=== PATIENT | female | born 1965 | race Caucasian/White ===

== ENCOUNTER 2016-11-16 05:38 | Inpatient (IN) | payer BC ==
[2016-11-16] MEDS ORDERED: Sodium Chloride 0.9% 1,000 ML IV ONE (05:56)
[2016-11-16] MEDS ORDERED: Ondansetron 4 MG/2 ML SDV IVPUSH ONE (05:56)
--- NOTE | 2016-11-16 06:53 | EDM.PDOC ---
ED HPI DIABETIC EMERGENCY - General Chief Complaint: Diabetic Complaint Stated Complaint: HIGH BLOOD SUGAR Time Seen by Provider: 11/16/16 06:43 - History of Present Illness INITIAL COMMENTS - FREE TEXT/NARRATIVE: HISTORY AND PHYSICAL: History of present illness: Patient 47-year-old female history diabetes assessments or nausea and vomiting over the last 4 or 5 days she denies abdominal pain denies fever chills. She denies history of known gastroparesis Review of systems: As per history of present illness and below otherwise all systems reviewed and negative. Past medical history: As per history of present illness and as reviewed below otherwise noncontributory. Surgical history: As per history of present illness and as reviewed below otherwise noncontributory. Social history: No reported history of drug or alcohol abuse. Family history: As per history of present illness and as reviewed below otherwise noncontributory. Physical exam: HEENT: Atraumatic, normocephalic, pupils reactive, negative for conjunctival pallor or scleral icterus, mucous membranes dry, throat clear, neck supple, nontender, trachea midline. Lungs: Clear to auscultation, breath sounds equal bilaterally, chest nontender. Heart: S1S2, regular, negative for clicks, rubs, or JVD. Abdomen: Soft, nondistended, nontender. Negative for masses or hepatosplenomegaly. Negative for costovertebral tenderness. Pelvis: Stable nontender. Genitourinary: Deferred. Rectal: Deferred. Extremities: Atraumatic, negative for cords or calf pain. Neurovascular unremarkable. Neuro: Awake, alert, oriented. Cranial nerves II through XII unremarkable. Cerebellum unremarkable. Motor and sensory unremarkable throughout. Exam nonfocal. Diagnostics: CBC CMP lipase EKG ABG Therapeutics: Normal saline 1 L bolus Zofran 4 mg IV Impression: #1 vomiting with dehydration #2 insulin-dependent diabetes Definitive disposition and diagnosis as appropriate - Related Data Allergies/ADRs: Allergies Allergy/AdvReac Type Severity Reaction Status Date / Time Sulfa (Sulfonamide Allergy Severe Airway Verified 11/16/16 05:59 Antibiotics) Tightness Penicillins Allergy Unknown Other Verified 11/16/16 05:59 codeine AdvReac Severe Vomiting Verified 11/16/16 05:59 Home Meds: Home Meds Hydrochlorothiazide 25 mg PO DAILY 11/16/16 [History] Insulin Glargine,Hum.Rec.Anlog [Aguilar Mattson] 18 unit SQ BEDTIME 11/16/16 [ History] SitaGLIPtin [Januvia] 40 mg PO DAILY 11/16/16 [History] metFORMIN HCl [Metformin HCl] 1,000 mg PO BID 11/16/16 [History] Past Medical History Cardiovascular History: Reports: Hypertension 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: Musculoskeletal History: Reports: Back pain, chronic, Other (see below) Other Musculoskeletal History: states back pain since hysterectomy Endocrine/Metabolic History: Reports: Diabetes, type II - Infectious Disease History Infectious Disease History: Reports: Chicken pox - Past Surgical History HEENT Surgical History: Reports: Tonsillectomy GI Surgical History: Reports: Appendectomy, Cholecystectomy Female Surgical History: Reports: section, Hysterectomy Social & Family History - Family History Cardiac: Reports: Heart failure Endocrine/Metabolic: Reports: Diabetes, type I, Diabetes, type II - Tobacco Use Smoking Status *Q: Never Smoker Second Hand Smoke Exposure: No - Caffeine Use Caffeine Use: Reports: Coffee Caffeine Use Comment: rare - Recreational Drug Use Recreational Drug Use: No ED ROS GENERAL - Review of Systems Review Of Systems: ROS reveals no pertinent complaints other than HPI. ED EXAM GENERAL NO PERIP PULSE - Physical Exam Exam: See Below (See dictation) Course - Vital Signs Last Recorded V/S: Last Vital Signs Temp 36.7 C 11/16/16 05:40 Pulse 86 11/16/16 06:17 Resp 17 11/16/16 06:17 BP 140/89 11/16/16 06:17 Pulse Ox 98 11/16/16 06:17 - Orders/Labs/Meds Orders: Active Orders 24 hr Category Date Time Status EKG Documentation Completion [RC] STAT Care 11/16/16 05:53 Active Chest 1V Frontal [CR] Stat Exams 11/16/16 05:55 Taken Labs: Laboratory Tests 11/16/16 11/16/16 11/16/16 Range/Units 05:50 05:50 05:50 WBC 6.33 (4.0-11.0) K/uL RBC 5.16 (4.30-5.90) M/uL Hgb 14.7 (12.0-16.0) g/dL Hct 41.8 (36.0-46.0) % MCV 81.0 (80.0-98.0) fL MCH 28.5 (27.0-32.0) pg MCHC 35.2 (31.0-37.0) g/dL RDW Std Deviation 38.3 (28.0-62.0) fl RDW Coeff of Lionel 13 (11.0-15.0) % Plt Count 164 (150-400) K/uL MPV 11.20 (7.40-12.00) fL Neut % (Auto) 57.0 (48.0-80.0) % Lymph % (Auto) 34.1 (16.0-40.0) % Yates % (Auto) 5.1 (0.0-15.0) % Eos % (Auto) 3.3 (0.0-7.0) % Baso % (Auto) 0.5 (0.0-1.5) % Neut # (Auto) 3.6 (1.4-5.7) K/uL Lymph # (Auto) 2.2 (0.6-2.4) K/uL Yates # (Auto) 0.3 (0.0-0.8) K/uL Eos # (Auto) 0.2 (0.0-0.7) K/uL Baso # (Auto) 0.0 (0.0-0.1) K/uL Nucleated RBC % 0.0 /100WBC Nucleated RBCs # 0 K/uL ABG pH (7.35-7.45) ABG pCO2 (35-45) mmHG ABG pO2 (75-100) mmHG ABG HCO3 (22-26) mEq/L ABG Total CO2 ABG Base Excess (-2.0-2.0) Sodium 134 L (136-146) mmol/L Potassium 3.8 (3.5-5.1) mmol/L Chloride 96 L (98-110) mmol/L Carbon Dioxide 27 (21-31) mmol/L BUN 14 (6.0-23.0) mg/dL Creatinine 1.3 (0.6-1.5) mg/dL Est Cr Clr Drug Dosing 45.55 mL/min Estimated GFR (MDRD) 43.0 ml/min Glucose 546 H* (60-110) mg/dL Calcium 9.7 (8.8-10.8) mg/dL Total Bilirubin 0.5 (0.1-1.5) mg/dL AST 49 H (5-40) IU/L ALT 62 H (8-54) IU/L Alkaline Phosphatase 132 (40-150) CK-MB (CK-2) 1.3 (0-6.6) ng/ml Troponin I < 0.10 (0.0-0.29) NG/ML Total Protein 7.9 (6.0-8.0) g/dL Albumin 4.4 (3.5-5.0) g/dL Globulin 3.5 (2.0-3.5) g/dL Albumin/Globulin Ratio 1.3 (1.3-2.8) Lipase 46 (7-80) U/L Urine Color Urine Appearance Urine pH (5.0-8.0) Ur Specific Beaumont (1.001-1.035) Urine Protein (NEGATIVE) mg/dL Urine Glucose (UA) (NEGATIVE) mg/dL Urine Ketones (NEGATIVE) mg/dL Urine Occult Blood (NEGATIVE) Urine Nitrite (NEGATIVE) Urine Bilirubin (NEGATIVE) Urine Urobilinogen (<2.0) EU/dL Ur Leukocyte Esterase (NEGATIVE) Urine RBC (0-2/HPF) Urine WBC (0-5/HPF) Ur Epithelial Cells (NONE-FEW) Urine Bacteria (NEGATIVE) 11/16/16 11/16/16 Range/Units 05:52 06:20 WBC (4.0-11.0) K/uL RBC (4.30-5.90) M/uL Hgb (12.0-16.0) g/dL Hct (36.0-46.0) % MCV (80.0-98.0) fL MCH (27.0-32.0) pg MCHC (31.0-37.0) g/dL RDW Std Deviation (28.0-62.0) fl RDW Coeff of Lionel (11.0-15.0) % Plt Count (150-400) K/uL MPV (7.40-12.00) fL Neut % (Auto) (48.0-80.0) % Lymph % (Auto) (16.0-40.0) % Yates % (Auto) (0.0-15.0) % Eos % (Auto) (0.0-7.0) % Baso % (Auto) (0.0-1.5) % Neut # (Auto) (1.4-5.7) K/uL Lymph # (Auto) (0.6-2.4) K/uL Yates # (Auto) (0.0-0.8) K/uL Eos # (Auto) (0.0-0.7) K/uL Baso # (Auto) (0.0-0.1) K/uL Nucleated RBC % /100WBC Nucleated RBCs # K/uL ABG pH 7.444 (7.35-7.45) ABG pCO2 40 (35-45) mmHG ABG pO2 80 (75-100) mmHG ABG HCO3 28 H (22-26) mEq/L ABG Total CO2 24.5 ABG Base Excess 3.2 H (-2.0-2.0) Sodium (136-146) mmol/L Potassium (3.5-5.1) mmol/L Chloride (98-110) mmol/L Carbon Dioxide (21-31) mmol/L BUN (6.0-23.0) mg/dL Creatinine (0.6-1.5) mg/dL Est Cr Clr Drug Dosing mL/min Estimated GFR (MDRD) ml/min Glucose (60-110) mg/dL Calcium (8.8-10.8) mg/dL Total Bilirubin (0.1-1.5) mg/dL AST (5-40) IU/L ALT (8-54) IU/L Alkaline Phosphatase (40-150) CK-MB (CK-2) (0-6.6) ng/ml Troponin I (0.0-0.29) NG/ML Total Protein (6.0-8.0) g/dL Albumin (3.5-5.0) g/dL Globulin (2.0-3.5) g/dL Albumin/Globulin Ratio (1.3-2.8) Lipase (7-80) U/L Urine Color YELLOW Urine Appearance CLEAR Urine pH 6.0 (5.0-8.0) Ur Specific Beaumont <= 1.005 (1.001-1.035) Urine Protein NEGATIVE (NEGATIVE) mg/dL Urine Glucose (UA) >=1000 (NEGATIVE) mg/dL Urine Ketones NEGATIVE (NEGATIVE) mg/dL Urine Occult Blood NEGATIVE (NEGATIVE) Urine Nitrite NEGATIVE (NEGATIVE) Urine Bilirubin NEGATIVE (NEGATIVE) Urine Urobilinogen 0.2 (<2.0) EU/dL Ur Leukocyte Esterase NEGATIVE (NEGATIVE) Urine RBC 0-1 (0-2/HPF) Urine WBC 1-3 (0-5/HPF) Ur Epithelial Cells RARE (NONE-FEW) Urine Bacteria RARE (NEGATIVE) Meds: Medications Discontinued Medications Generic Name Dose Route Start Last Admin Trade Name Freq PRN Reason Stop Dose Admin Sodium Chloride 1,000 mls @ 999 mls/hr 11/16/16 05:56 11/16/16 06:08 Normal Saline IV 11/16/16 06:56 999 mls/hr .BOLUS ONE Administration Ondansetron HCl 4 mg 11/16/16 05:56 11/16/16 06:08 Zofran IVPUSH 11/16/16 05:57 4 mg ONETIME ONE Administration Departure - Departure Time of Disposition: 07:02 Disposition: Refer to Observation Condition: good Clinical Impression: Uncontrolled diabetes mellitus, Vomiting, Dehydration Referrals: PCP,None [Primary Care Provider] - Forms: ED Department Discharge - My Orders Last 24 Hours: My Active Orders 11/16/16 05:53 EKG Documentation Completion [RC] STAT 11/16/16 05:55 Chest 1V Frontal [CR] Stat - Assessment/Plan Last 24 Hours: My Active Orders 11/16/16 05:53 EKG Documentation Completion [RC] STAT 11/16/16 05:55 Chest 1V Frontal [CR] Stat
[2016-11-16] MEDS: Ondansetron 4 MG/2 ML SDV IVPUSH PRN ×2 (09:19→13:21)
[2016-11-16] MEDS ORDERED: fentaNYL 100 MCG/2 ML SDV IVPUSH ONE ×2 (10:03→13:29)
--- NOTE | 2016-11-16 10:22 | PCM.HP ---
H&P History of Present Illness - General Admit Problem/Dx: Admission Diagnosis/Problem Admission Diagnosis/Problem Vomiting Source of Information: Patient History Limitations: Reports: No limitations - History of Present Illness Onset of Symptoms: Reports: gradual Duration of Symptoms: Reports: Week(s):, Getting worse Location: Reports: abdomen Quality: Reports: Dull, Pressure Severity: severe Improves with: Reports: None Worsens with: Reports: None Associated Symptoms: Reports: nausea/vomiting - Related Data Allergies/Adverse Reactions: Allergies Allergy/AdvReac Type Severity Reaction Status Date / Time Sulfa (Sulfonamide Allergy Severe Airway Verified 11/16/16 05:59 Antibiotics) Tightness Penicillins Allergy Unknown Other Verified 11/16/16 05:59 codeine AdvReac Severe Vomiting Verified 11/16/16 05:59 Home Medications: Home Meds Hydrochlorothiazide 25 mg PO DAILY 11/16/16 [History] Insulin Glargine,Hum.Rec.Anlog [Toujeo Solostar] 18 unit SQ BEDTIME 11/16/16 [ History] SitaGLIPtin [Januvia] 40 mg PO DAILY 11/16/16 [History] metFORMIN HCl [Metformin HCl] 1,000 mg PO BID 11/16/16 [History] Past Medical History HEENT History: Reports: Other (see below) (episodic vertigo) Cardiovascular History: Reports: Hypertension Gastrointestinal History: Reports: Other (see below) (ruptured appendix in childhood, chlecystectomy, c section, hysterectomy) 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 OB/BYN History: 3 live births several miscarriages Musculoskeletal History: Reports: Back pain, chronic, Other (see below) Other Musculoskeletal History: states back pain since hysterectomy Psychiatric History: Reports: Anxiety (recent onset) Endocrine/Metabolic History: Reports: Diabetes, type II - Infectious Disease History Infectious Disease History: Reports: Chicken pox - Past Surgical History HEENT Surgical History: Reports: Tonsillectomy GI Surgical History: Reports: Appendectomy, Cholecystectomy Female Surgical History: Reports: section, Hysterectomy Social & Family History - Family History Family Medical History: Noncontributory (parents lived to 80ies, several siblings well) Cardiac: Reports: Heart failure Endocrine/Metabolic: Reports: Diabetes, type I, Diabetes, type II - Tobacco Use Smoking Status *Q: Never Smoker Second Hand Smoke Exposure: No - Caffeine Use Caffeine Use: Reports: Coffee Caffeine Use Comment: rare - Alcohol Use Days Per Week of Alcohol Use Comment: rare Alcohol Use in Last Twelve Months: Yes - Recreational Drug Use Recreational Drug Use: No - Living Situation & Occupation 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) H&P Review of Systems - Review of Systems: Review Of Systems: See Below General: Reports: malaise, weakness, decreased appetite HEENT: Reports: vertigo Pulmonary: Reports: No Symptoms Cardiovascular: Reports: no symptoms Gastrointestinal: Reports: Abdominal pain, Distension, Vomiting Genitourinary: Reports: no symptoms Musculoskeletal: Reports: leg pain (neuropathy) Skin: Reports: no symptoms Psychiatric: Reports: anxiety Neurological: Reports: Tingling Hematologic/Lymphatic: Reports: no symptoms Immunologic: Reports: no symptoms Exam - Exam Exam: See Below - Vital Signs Vital Signs: Last Vital Signs Temp 36.9 C 11/16/16 07:19 Pulse 82 11/16/16 07:19 Resp 17 11/16/16 07:19 BP 116/68 11/16/16 07:19 Pulse Ox 95 11/16/16 07:19 Weight: 98.883 kg - Exam General: alert, moderate distress HEENT: Conjunctiva clear Neck: trachea midline Lungs: Clear to auscultation Cardiovascular: regular rate Abdomen: tenderness (marked. seems generalized without rebound), hypoactive bowel sounds, other (tinkly quality) (Female) Exam: Deferred Rectal (Female) Exam: Deferred Back Exam: normal inspection Extremities: normal inspection, normal pulses Skin: warm, intact Neurological: cranial nerves intact Neuro Extensive - Mental Status: alert, oriented x3, memory intact Neuro Extensive - Motor, Sensory, Reflexes: CN II-XII intact Psychiatric: anxious - Patient Data Result Diagrams: 11/16/16 05:50 11/16/16 05:50 *Q Meaningful Use (ADM) - VTE *Q VTE Criteria *Q: - Stroke *Q Stroke Criteria *Q: - AMI *Q AMI Criteria *Q: Problem List Initiated/Reviewed/Updated: Yes Orders Last 24hrs: Active Orders 24 hr Category Date Time Status Patient Status [ADT] Routine ADT 11/16/16 10:04 Active Oxygen Therapy [RC] PRN Care 11/16/16 10:04 Active VTE/DVT Education [RC] PER UNIT ROUTINE Care 11/16/16 10:04 Active Vital Signs [RC] Q4H Care 11/16/16 10:04 Active Nothing per Oral Now Diet [DIET] Diet 11/16/16 Breakfast Active Abdomen Pelvis w wo Cont [CT] Routine Exams 11/16/16 09:58 Ordered Ondansetron [Zofran] Med 11/16/16 09:14 Active 4 mg IVPUSH Q4H PRN Resuscitation Status Routine Resus Stat 11/16/16 10:04 Ordered Medication Orders Ondansetron HCl (Zofran) 4 mg IVPUSH Q4H PRN PRN Reason: Nausea Last Admin: 11/16/16 09:19 Dose: 4 mg sign and symptoms consistent with SBO in this pt with history of multiple abdominal surgery DM with neuropathy hypertension vertigo anxiety will get CT, likely surgical consult
[2016-11-16] MEDS ORDERED: Insulin Aspart 100 Units/ML 3 ML Pen SUBCUT STA (10:29)
[2016-11-16] MEDS ORDERED: Dextrose 5%-0.45% NaCl 1,000 ML IV SCH (10:45)
[2016-11-16] MEDS ORDERED: Promethazine 25 MG/ML SDV IM PRN (11:46)
[2016-11-16] MEDS: Pregabalin 25 MG Cap PO SCH ×2 (12:09→21:13)
[2016-11-16] MEDS ORDERED: Insulin Aspart 100 Units/ML 3 ML Pen SUBCUT SCH ×3 (16:00→22:00)
[2016-11-16] MEDS: oxyCODONE 5 MG Tab PO PRN ×2 (16:54→21:13)
[2016-11-16] MEDS: Sodium Chloride 0.9% 1,000 ML IV SCH (18:26)
[2016-11-16] MEDS: Insulin Aspart 100 Units/ML 3 ML Pen SUBCUT SCH (21:56)
[2016-11-17] MEDS: oxyCODONE 5 MG Tab PO PRN (01:34)
[2016-11-17] MEDS ORDERED: Acetaminophen 325 MG Tab PO PRN (01:38)
[2016-11-17] MEDS: Ondansetron 4 MG/2 ML SDV IVPUSH PRN ×3 (01:57→21:38)
[2016-11-17] MEDS: Insulin Aspart 100 Units/ML 3 ML Pen SUBCUT SCH ×3 (04:02→17:25)
--- NOTE | 2016-11-17 09:33 | PCM.PN ---
- General Info Date of Service: 11/17/16 Admission Dx/Problem (Free Text): Admission Diagnosis/Problem Admission Diagnosis/Problem Vomiting Subjective Update: Doing better today, abdominal pain improving. Tolerating diet. Has headache now , wants Lyrica discontinued. No chest pain SOB or neck pain. Functional Status: Reports: pain controlled, tolerating diet, ambulating, urinating - Review of Systems General: Denies: Fever HEENT: Reports: headaches (frontal, feels like the typical heahache she gets when taking Lyrica, requests to stop Lyrica.). Denies: sinus congestion, sore throat Pulmonary: Reports: no symptoms. Denies: shortness of breath, cough, sputum Cardiovascular: Reports: No Symptoms. Denies: Chest Pain, Palpitations Gastrointestinal: Reports: Abdominal pain (tenderness noted diffusely, explains as crampy sensation now. ), Flatus, Nausea. Denies: Vomiting Genitourinary: Reports: no symptoms. Denies: dysuria, frequency, burning Musculoskeletal: Reports: no symptoms Skin: Reports: no symptoms Neurological: Reports: No Symptoms Psychiatric: Reports: no symptoms - Patient Data Vitals - most recent: Last Vital Signs Temp 97.3 F 11/17/16 08:00 Pulse 67 11/17/16 08:00 Resp 20 11/17/16 08:00 BP 106/60 11/17/16 08:00 Pulse Ox 94 L 11/17/16 08:00 Weight - most recent: 98.883 kg I&O - last 24 hours: Intake & Output 11/16/16 11/17/16 11/17/16 22:59 06:59 14:59 Intake Total 240 660 Output Total 400 1550 Balance -160 -890 Lab Results last 24 hrs: Laboratory Results - last 24 hr 11/16/16 11/16/16 11/16/16 Range/Units 11:02 16:13 21:18 WBC (4.0-11.0) K/uL RBC (4.30-5.90) M/uL Hgb (12.0-16.0) g/dL Hct (36.0-46.0) % MCV (80.0-98.0) fL MCH (27.0-32.0) pg MCHC (31.0-37.0) g/dL RDW Std Deviation (28.0-62.0) fl RDW Coeff of Lionel (11.0-15.0) % Plt Count (150-400) K/uL MPV (7.40-12.00) fL Neut % (Auto) (48.0-80.0) % Lymph % (Auto) (16.0-40.0) % Aurora % (Auto) (0.0-15.0) % Eos % (Auto) (0.0-7.0) % Baso % (Auto) (0.0-1.5) % Neut # (Auto) (1.4-5.7) K/uL Lymph # (Auto) (0.6-2.4) K/uL Aurora # (Auto) (0.0-0.8) K/uL Eos # (Auto) (0.0-0.7) K/uL Baso # (Auto) (0.0-0.1) K/uL Nucleated RBC % /100WBC Nucleated RBCs # K/uL Smear Path Review Sodium (136-146) mmol/L Potassium (3.5-5.1) mmol/L Chloride (98-110) mmol/L Carbon Dioxide (21-31) mmol/L BUN (6.0-23.0) mg/dL Creatinine (0.6-1.5) mg/dL Est Cr Clr Drug Dosing mL/min Estimated GFR (MDRD) ml/min Glucose (60-110) mg/dL POC Glucose 322 H 304 H 355 H (60-110) mg/dL Calcium (8.8-10.8) mg/dL Phosphorus (2.4-4.7) mg/dL Magnesium (1.5-2.3) mEq/L 11/17/16 11/17/16 11/17/16 Range/Units 04:00 04:35 04:35 WBC 4.68 (4.0-11.0) K/uL RBC 4.63 (4.30-5.90) M/uL Hgb 12.9 (12.0-16.0) g/dL Hct 37.8 (36.0-46.0) % MCV 81.6 (80.0-98.0) fL MCH 27.9 (27.0-32.0) pg MCHC 34.1 (31.0-37.0) g/dL RDW Std Deviation 39.7 (28.0-62.0) fl RDW Coeff of Lionel 13 (11.0-15.0) % Plt Count 148 L (150-400) K/uL MPV 10.70 (7.40-12.00) fL Neut % (Auto) 58.4 (48.0-80.0) % Lymph % (Auto) 32.7 (16.0-40.0) % Aurora % (Auto) 4.9 (0.0-15.0) % Eos % (Auto) 3.6 (0.0-7.0) % Baso % (Auto) 0.4 (0.0-1.5) % Neut # (Auto) 2.7 (1.4-5.7) K/uL Lymph # (Auto) 1.5 (0.6-2.4) K/uL Aurora # (Auto) 0.2 (0.0-0.8) K/uL Eos # (Auto) 0.2 (0.0-0.7) K/uL Baso # (Auto) 0.0 (0.0-0.1) K/uL Nucleated RBC % 0.0 /100WBC Nucleated RBCs # 0 K/uL Smear Path Review Sodium 140 (136-146) mmol/L Potassium 3.5 (3.5-5.1) mmol/L Chloride 101 (98-110) mmol/L Carbon Dioxide 30 (21-31) mmol/L BUN 9 (6.0-23.0) mg/dL Creatinine 1.1 (0.6-1.5) mg/dL Est Cr Clr Drug Dosing 53.83 mL/min Estimated GFR (MDRD) 52.2 ml/min Glucose 199 H (60-110) mg/dL POC Glucose 191 H (60-110) mg/dL Calcium 8.5 L (8.8-10.8) mg/dL Phosphorus 3.1 (2.4-4.7) mg/dL Magnesium 1.6 (1.5-2.3) mEq/L 11/17/16 Range/Units 04:35 WBC (4.0-11.0) K/uL RBC (4.30-5.90) M/uL Hgb (12.0-16.0) g/dL Hct (36.0-46.0) % MCV (80.0-98.0) fL MCH (27.0-32.0) pg MCHC (31.0-37.0) g/dL RDW Std Deviation (28.0-62.0) fl RDW Coeff of Lionel (11.0-15.0) % Plt Count (150-400) K/uL MPV (7.40-12.00) fL Neut % (Auto) (48.0-80.0) % Lymph % (Auto) (16.0-40.0) % Aurora % (Auto) (0.0-15.0) % Eos % (Auto) (0.0-7.0) % Baso % (Auto) (0.0-1.5) % Neut # (Auto) (1.4-5.7) K/uL Lymph # (Auto) (0.6-2.4) K/uL Aurora # (Auto) (0.0-0.8) K/uL Eos # (Auto) (0.0-0.7) K/uL Baso # (Auto) (0.0-0.1) K/uL Nucleated RBC % /100WBC Nucleated RBCs # K/uL Smear Path Review SENT TO PATHOLOGY Sodium (136-146) mmol/L Potassium (3.5-5.1) mmol/L Chloride (98-110) mmol/L Carbon Dioxide (21-31) mmol/L BUN (6.0-23.0) mg/dL Creatinine (0.6-1.5) mg/dL Est Cr Clr Drug Dosing mL/min Estimated GFR (MDRD) ml/min Glucose (60-110) mg/dL POC Glucose (60-110) mg/dL Calcium (8.8-10.8) mg/dL Phosphorus (2.4-4.7) mg/dL Magnesium (1.5-2.3) mEq/L Med Orders - Current: Current Medications Acetaminophen (Tylenol) 650 mg PO Q6H PRN PRN Reason: Headache/Pain Last Admin: 11/17/16 04:06 Dose: 650 mg Sodium Chloride (Normal Saline) 1,000 mls @ 50 mls/hr IV ASDIRECTED [place] Last Admin: 11/16/16 18:26 Dose: 50 mls/hr Insulin Aspart (Novolog) 0 unit SUBCUT TIDAC [place] PRN Reason: Protocol Non-Formulary Medication (Insulin Glargine,Hum.Rec.Anlog [Tocamryn Zenaayana]) 18 unit SQ BEDTIME REPLACED BY [facility] Ondansetron HCl (Zofran) 4 mg IVPUSH Q4H PRN PRN Reason: Nausea Last Admin: 11/17/16 08:46 Dose: 4 mg Oxycodone HCl (Oxycodone) 5 mg PO Q4H PRN PRN Reason: Pain Last Admin: 11/17/16 01:34 Dose: 5 mg Promethazine HCl (Phenergan) 25 mg IM Q8H PRN PRN Reason: Nausea/Vomiting Discontinued Medications Fentanyl (Sublimaze) 25 mcg IVPUSH ONETIME ONE Stop: 11/16/16 10:04 Last Admin: 11/16/16 10:28 Dose: 25 mcg Fentanyl (Sublimaze) 50 mcg IVPUSH ONETIME ONE Stop: 11/16/16 13:30 Last Admin: 11/16/16 13:45 Dose: 50 mcg Sodium Chloride (Normal Saline) 1,000 mls @ 999 mls/hr IV .BOLUS ONE Stop: 11/16/16 06:56 Last Admin: 11/16/16 06:08 Dose: 999 mls/hr Dextrose/Sodium Chloride (Dextrose 5%-1/2 Ns) 1,000 mls @ 50 mls/hr IV ASDIRECTED REPLACED BY [facility] Insulin Aspart (Novolog) 10 unit SUBCUT NOW STA Stop: 11/16/16 10:30 Last Admin: 11/16/16 10:40 Dose: 10 units Insulin Aspart (Novolog) 5 unit SUBCUT Q6H REPLACED BY [facility] Last Admin: 11/16/16 16:56 Dose: 5 units Insulin Aspart (Novolog) 0 unit SUBCUT Q6H [place] PRN Reason: Protocol Insulin Aspart (Novolog) 6 unit SUBCUT Q6H REPLACED BY [facility] Insulin Aspart (Novolog) 12 unit SUBCUT Q6H REPLACED BY [facility] Last Admin: 11/17/16 04:02 Dose: 12 units Ondansetron HCl (Zofran) 4 mg IVPUSH ONETIME ONE Stop: 11/16/16 05:57 Last Admin: 11/16/16 06:08 Dose: 4 mg Pregabalin (Lyrica) 25 mg PO BID REPLACED BY [facility] Last Admin: 11/16/16 21:13 Dose: 25 mg - Exam General: alert, oriented, cooperative HEENT: Pupils equal, Pupils reactive, EOMI, Mucous membr. moist/pink, Other (no nuchal rigidity. Headache noted to frontal, no blurred vision, does not feel like normal migraine. But does feel like the headaches she gets from taking her Lyrica. Requests this to be stopped, she only takes in PRN for nerve pain to feet.) Neck: supple Lungs: Clear to auscultation, Normal respiratory effort Cardiovascular: Regular Rate Abdomen: bowel sounds present, soft, tenderness (diffusely tender, but reports it is much improved from yesterday.), organomegaly (splenomegaly noted slight to RUQ, but does have obese abdomen). No: CVA tenderness Extremities: no edema, normal pulses Skin: warm, dry, intact Neurological: no new focal deficit, normal speech, cranial nerves intact Psy/Mental Status: alert, normal affect, normal mood - Problem List & Annotations (1) Abdominal pain SNOMED Code(s): 44670602 Code(s): R10.9 - UNSPECIFIED ABDOMINAL PAIN Status: Acute Current Visit: Yes Qualifiers: Abdominal location: generalized Qualified Code(s): R10.84 - Generalized abdominal pain (2) Headache SNOMED Code(s): 10582450 Code(s): R51 - HEADACHE Status: Acute Current Visit: Yes Qualifiers: Headache type: unspecified Annotation/Comment:: related to lyrica administration (3) Uncontrolled diabetes mellitus SNOMED Code(s): 028602331 Code(s): E11.65 - TYPE 2 DIABETES MELLITUS WITH HYPERGLYCEMIA Status: Chronic Current Visit: Yes Qualifiers: Diabetes mellitus type: type 2 Diabetes mellitus complication status: with hyperglycemia Diabetes mellitus 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 Qualified Code(s): E11.65 - Type 2 diabetes mellitus with hyperglycemia; Z79.4 - FDC (current) use of insulin (4) Vomiting SNOMED Code(s): 187697160 Code(s): R11.10 - VOMITING, UNSPECIFIED Status: Resolved Current Visit: Yes (5) Splenomegaly SNOMED Code(s): 36952571 Code(s): R16.1 - SPLENOMEGALY, NOT ELSEWHERE CLASSIFIED Status: Acute Current Visit: Yes - Problem List Review Problem List Initiated/Reviewed/Updated: Yes - My Orders Last 24 Hours: My Active Orders 11/17/16 11:30 Insulin Aspart [NovoLOG] See Protocol SUBCUT TIDAC 11/17/16 21:00 Insulin Glargine,Hum.Rec.Anlog [Toufranky Freitasmiguelshu] 18 unit SQ BEDTIME 11/17/16 Lunch Full Liquid Diet [DIET] - Plan Plan:: This 51 year old female admitted with nausea and vomiting 1. Nausea and vomiting: Has improved. Tolerating diet and passing gas. eager for diet to be advanced. Will advance diet to [place]. CT of abdomen shows splenomegaly with fatty infiltration of the liver. Spoke with Dr. Vargas, general surgery regarding splenomegaly finding, since improvement and Platelets stable, she beth recommend follow up with Ambulatory Services Representative to investigate causes of splenomegaly and with PCP. Peripheral smear pending. 2. Headache: Likely due to Lyrica. Will discontinue and monitor 3. DM type 2: Novolog TIDAC, continue Tuojeo at bedtime. VTE: SCDs Dipso: 1-2 days pending improvement.
[2016-11-17] MEDS: Pregabalin 25 MG Cap PO SCH (09:35)
[2016-11-17] MEDS ORDERED: traMADol 50 MG Tab PO ONE (14:28)
[2016-11-17] MEDS: Sodium Chloride 0.9% 1,000 ML IV SCH ×2 (17:25→18:29)
--- NOTE | 2016-11-17 18:16 | CR ---
EXAM DATE: 11/16/16 PATIENT'S AGE: 51 Patient: GABY VIRK Facility: [place], [place] Site . Site : 1965 Study: XRay Chest [id number] 6:07:18 AM Ordering Physician: Doctor Kramer Final Report: INDICATION: HIGH BP, N/V TECHNIQUE: Chest radiograph 1 view COMPARISON: None FINDINGS: Cardiovascular and mediastinum: The cardiac silhouette is normal in appearance and size. Mediastinum is within normal limits. Lungs and pleural space: Both lungs are unremarkable in appearance. No sign of pleural effusion. No pneumothorax is seen. Bones and soft tissues: No significant findings. IMPRESSION: 1. No acute cardiopulmonary disease seen. Dictated by: Vj Sevilla MD @ 11/16/2016 06:13:21 (Electronic Signature) Report Signed by Proxy and Original Signed Document filed in the Medical Record. MTDD
--- NOTE | 2016-11-17 18:31 | CT ---
EXAM DATE: 11/16/16 PATIENT'S AGE: 51 Patient: GABY VIRK Facility: [place], [place] Site . Site : 1965 Study: CT Abdomen/Pelvis [id number]/[id number] 11:24:10 AM Ordering Physician: Casey Waller Final Report: INDICATION: Abdominal pain. Technique: Multiple axial images were obtained the diaphragm to the symphysis pubis without contrast. Sagittal and coronal reformatted images were obtained. Comparison: None. Findings: The visualized portion of the lung bases are clear. The liver is of diffuse decreased attenuation consistent with fatty infiltration of the liver. The spleen is enlarged measuring 16.3 centimeters in greatest length. The pancreas and adrenal glands are of unremarkable nonenhanced CT appearance. There are surgical clips in the gallbladder fossa consist with a previous cholecystectomy. There is no evidence of a bowel obstruction. There are a few scattered diverticula in the descending colon. There is no evidence of diverticulitis. There is no free fluid identified in the abdomen or pelvis. The abdominal aorta is normal in caliber. There is no adenopathy seen. The uterus is surgically absent. There is an anterior abdominal wall hernia just inferior to the umbilicus containing fat only. There are degenerative changes in the spine. Impression: Splenomegaly. Fatty infiltration of liver. Status post cholecystectomy and hysterectomy. Anterior abdominal wall hernia just inferior to the umbilicus containing fat only. Few diverticula descending colon. No evidence of diverticulitis Dictated by Dirk Gudino MD @ 11/16/2016 12:03:36 PM Dictated by: Dirk Gudino MD @ 11/16/2016 12:04:14 (Electronic Signature) Report Signed by Proxy and Original Signed Document filed in the Medical Record. [facility]
[2016-11-17] MEDS ORDERED: INSULIN GLARGINE HUM REC ANLOG 18 UNIT SUBCUT SCH (21:00)
[2016-11-17] MEDS ORDERED: TOUJEO SUBCUT SCH (21:00)
[2016-11-18] MEDS: oxyCODONE 5 MG Tab PO PRN (01:56)
[2016-11-18] MEDS: Ondansetron 4 MG/2 ML SDV IVPUSH PRN (05:02)
[2016-11-18] MEDS: Insulin Aspart 100 Units/ML 3 ML Pen SUBCUT SCH (06:48)
[2016-11-18 07:39] VITALS: BP 126/77
--- NOTE | 2016-11-18 08:41 | PCM.DCSUM1 ---
<Chelsea Taylor M - Last Filed: 11/18/16 10:15> Discharge Summary - Hospital Course Brief History: THis 47 year old female with pmh of DM type 2, obesity presented to the ED with complaints of N/V for the past 4-5 days. She reports not having much of an appetite, but feeling very thirsty. She also felt constipated. She denied intially any abodminal pain, fever chills or chest pain. Upon reassessment of Hospitalist, she had diffuse generalized abdominal pain. She reports her blood sugars have been out of control recently. In the ED CBC WNL, BMP WNL, except for elevated glucose at 546. UA was negative, CXR negative. Abd/ pelvis CT was completed thinking of SBO. CT revealed fatty infiltration of the liver and splenomegaly 16.3 cm at the largest length, Otherwise some diverticula in descending colon without evidence of diveticulitis. She was admitted for vomiting, dehydration and elevated glucose. - Discharge Data Discharge Date: 11/18/16 Discharge Disposition: Home, Self-Care 01 Condition: Good - Discharge Diagnosis/Problem(s) (1) Abdominal pain SNOMED Code(s): 57626043 ICD Code: R10.9 - UNSPECIFIED ABDOMINAL PAIN Status: Resolved Current Visit: Yes Qualifiers: Abdominal location: generalized Qualified Code(s): R10.84 - Generalized abdominal pain (2) Headache SNOMED Code(s): 92600956 ICD Code: R51 - HEADACHE Status: Resolved Current Visit: Yes Problem Details: related to lyrica administration Qualifiers: Headache type: unspecified (3) Uncontrolled diabetes mellitus SNOMED Code(s): 110594341 ICD Code: E11.65 - TYPE 2 DIABETES MELLITUS WITH HYPERGLYCEMIA Status: Chronic Current Visit: Yes Qualifiers: Diabetes mellitus type: type 2 Diabetes mellitus complication status: with hyperglycemia Diabetes mellitus residential insulin use: with computer mechanic use Qualified Code(s): E11.65 - Type 2 diabetes mellitus with hyperglycemia; Z79.4 - longterm (current) use of insulin (4) Vomiting SNOMED Code(s): 385348177 ICD Code: R11.10 - VOMITING, UNSPECIFIED Status: Resolved Current Visit: Yes (5) Splenomegaly SNOMED Code(s): 30293016 ICD Code: R16.1 - SPLENOMEGALY, NOT ELSEWHERE CLASSIFIED Status: Acute Current Visit: Yes - Patient Summary/Data Consults: Consultations 11/17/16 11:53 Consult to Agricultural Real Estate Agent [Consult to Diabetic Nurse Specialist] [CONS] Routine - Patient Instructions Diet: GI Soft/Low Residue/Low Fiber Activity: As Tolerated, No Strenuous Activities (No high impact activities until seen by Logging Contractor for splenomegaly.) Driving: May Drive Today Showering/Bathing: May Shower Notify Provider of: Fever, Increased Pain, Swelling and Redness, Drainage, Nausea and/or Vomiting - Discharge Plan Home Medications: Home Meds Hydrochlorothiazide 25 mg PO DAILY 11/16/16 [History] Insulin Glargine,Hum.Rec.Anlog [Toujeo Solostar] 18 unit SQ BEDTIME 11/16/16 [ History] metFORMIN HCl [Metformin HCl] 1,000 mg PO BIDMEALS 11/16/16 [History] SUMAtriptan [Imitrex] 50 - 100 mg PO Q2H PRN MDD max 200 mg/24 hrs 11/17/16 [ History] SitaGLIPtin [Januvia] 50 mg PO DAILY 11/17/16 [History] Patient Handouts: Type 2 Diabetes Mellitus, Adult, Nausea, Adult, Dehydration, Adult Referrals: Rafiq Jose MD [Ordering Only Provider] - 11/20/16 2:45 pm Kavon Fenton MD [Physician] - 11/24/16 1:30 pm - Discharge Summary/Plan Comment DC Time >30 min.: No Discharge Summary/Plan Comment: Discharge diagnoses Dehydration resolved Abdominal pain resolved splenomegaly Dm type 2- poor controlled HTN-stable Peripheral neuropathy Alicia was admitted and initially treated with suspicion of SBO. She was placed on NPO and given fluids. Insulin was given to treat hyperglycemia. She gradully improved and diet was increased with SBO was not noted on CT. She tolerated he diet well. BS were better controlled with insulin. She reports she was not taking oral medication as prescribed due to N/V. Abdominal pain resolved and she is eager for discharge today. Labwork remains WNL. BS lowered to 200s. Regarding splenomegaly, which is a new finding. I spoke with Dr. Vargas, general surgery, she recommended as long as she is feeling better and having no further abdominal pain she can followup with Logging Contractor regarding splenomegaly. Peripheral smear was completed and pending at discharge. An appointment was arranged for PCP and Logging Contractor. She is encouraged to return to ED or clinic if concerns arise. No new prescriptions. She is to restart all home medications previously prescribed. - General Info Date of Service: 11/18/16 Admission Dx/Problem (Free Text: Admission Diagnosis/Problem Admission Diagnosis/Problem Vomiting Subjective Update: Doing a lot better today. Having no further abdominal pain or N/V very hungry. Headache is gone after Lyrica discontinued. No chest pain SOB or neck pain. She is passing flatus. requesting discharge. Functional Status: Reports: pain controlled, tolerating diet, ambulating, urinating - Review of Systems General: Reports: No Symptoms. Denies: Fever HEENT: Reports: no symptoms. Denies: headaches, sinus congestion, sore throat Pulmonary: Reports: no symptoms. Denies: shortness of breath Cardiovascular: Reports: No Symptoms. Denies: Chest Pain, Palpitations, Edema Gastrointestinal: Reports: No symptoms, Flatus. Denies: Abdominal pain, Nausea , Vomiting Genitourinary: Reports: no symptoms. Denies: dysuria, frequency, burning Musculoskeletal: Reports: no symptoms Skin: Reports: no symptoms Neurological: Reports: No Symptoms Psychiatric: Reports: no symptoms - Patient Data Vitals - Most Recent: Last Vital Signs Temp 98.4 F 11/18/16 07:38 Pulse 68 11/18/16 07:38 Resp 20 11/18/16 07:38 BP 126/77 11/18/16 07:38 Pulse Ox 95 11/18/16 07:38 Weight - Most Recent: 98.883 kg I&O - Last 24 hours: Intake & Output 11/17/16 11/18/16 11/18/16 22:59 06:59 14:59 Intake Total 1130 1339 Output Total 800 1050 Balance 330 289 Lab Results - Last 24 hrs: Laboratory Results - last 24 hr 11/17/16 11/17/16 11/17/16 Range/Units 04:35 11:52 16:59 WBC (4.0-11.0) K/uL RBC (4.30-5.90) M/uL Hgb (12.0-16.0) g/dL Hct (36.0-46.0) % MCV (80.0-98.0) fL MCH (27.0-32.0) pg MCHC (31.0-37.0) g/dL RDW Std Deviation (28.0-62.0) fl RDW Coeff of Lionel (11.0-15.0) % Plt Count (150-400) K/uL MPV (7.40-12.00) fL Neut % (Auto) (48.0-80.0) % Lymph % (Auto) (16.0-40.0) % Foster % (Auto) (0.0-15.0) % Eos % (Auto) (0.0-7.0) % Baso % (Auto) (0.0-1.5) % Neut # (Auto) (1.4-5.7) K/uL Lymph # (Auto) (0.6-2.4) K/uL Foster # (Auto) (0.0-0.8) K/uL Eos # (Auto) (0.0-0.7) K/uL Baso # (Auto) (0.0-0.1) K/uL Nucleated RBC % /100WBC Nucleated RBCs # K/uL Smear Path Review SENT TO PATHOLOGY Sodium (136-146) mmol/L Potassium (3.5-5.1) mmol/L Chloride (98-110) mmol/L Carbon Dioxide (21-31) mmol/L BUN (6.0-23.0) mg/dL Creatinine (0.6-1.5) mg/dL Est Cr Clr Drug Dosing mL/min Estimated GFR (MDRD) ml/min Glucose (60-110) mg/dL POC Glucose 181 H 259 H (60-110) mg/dL Calcium (8.8-10.8) mg/dL Magnesium (1.5-2.3) mEq/L 11/17/16 11/18/16 11/18/16 Range/Units 20:59 04:44 04:44 WBC 4.23 (4.0-11.0) K/uL RBC 4.39 (4.30-5.90) M/uL Hgb 12.4 (12.0-16.0) g/dL Hct 36.0 (36.0-46.0) % MCV 82.0 (80.0-98.0) fL MCH 28.2 (27.0-32.0) pg MCHC 34.4 (31.0-37.0) g/dL RDW Std Deviation 39.7 (28.0-62.0) fl RDW Coeff of Lionel 13 (11.0-15.0) % Plt Count 138 L (150-400) K/uL MPV 10.90 (7.40-12.00) fL Neut % (Auto) 53.9 (48.0-80.0) % Lymph % (Auto) 37.6 (16.0-40.0) % Foster % (Auto) 4.7 (0.0-15.0) % Eos % (Auto) 3.1 (0.0-7.0) % Baso % (Auto) 0.7 (0.0-1.5) % Neut # (Auto) 2.3 (1.4-5.7) K/uL Lymph # (Auto) 1.6 (0.6-2.4) K/uL Foster # (Auto) 0.2 (0.0-0.8) K/uL Eos # (Auto) 0.1 (0.0-0.7) K/uL Baso # (Auto) 0.0 (0.0-0.1) K/uL Nucleated RBC % 0.0 /100WBC Nucleated RBCs # 0 K/uL Smear Path Review Sodium 141 (136-146) mmol/L Potassium 4.0 (3.5-5.1) mmol/L Chloride 104 (98-110) mmol/L Carbon Dioxide 30 (21-31) mmol/L BUN 9 (6.0-23.0) mg/dL Creatinine 1.1 (0.6-1.5) mg/dL Est Cr Clr Drug Dosing 53.83 mL/min Estimated GFR (MDRD) 52.2 ml/min Glucose 211 H (60-110) mg/dL POC Glucose 293 H (60-110) mg/dL Calcium 8.7 L (8.8-10.8) mg/dL Magnesium 1.8 (1.5-2.3) mEq/L Med Orders - Current: Current Medications Acetaminophen (Tylenol) 650 mg PO Q6H PRN PRN Reason: Headache/Pain Last Admin: 11/17/16 04:06 Dose: 650 mg Sodium Chloride (Normal Saline) 1,000 mls @ 50 mls/hr IV ASDIRECTED [facility] Last Admin: 11/17/16 18:29 Dose: 50 mls/hr Insulin Aspart (Novolog) 0 unit SUBCUT TIDAC [facility] PRN Reason: Protocol Last Admin: 11/18/16 06:48 Dose: 2 units Ondansetron HCl (Zofran) 4 mg IVPUSH Q4H PRN PRN Reason: Nausea Last Admin: 11/18/16 05:02 Dose: 4 mg Oxycodone HCl (Oxycodone) 5 mg PO Q4H PRN PRN Reason: Pain Last Admin: 11/18/16 01:56 Dose: 5 mg Toujeo Own Med 0 each SUBCUT BEDTIME [facility] Last Admin: 11/17/16 21:00 Dose: 18 each Promethazine HCl (Phenergan) 25 mg IM Q8H PRN PRN Reason: Nausea/Vomiting Discontinued Medications Fentanyl (Sublimaze) 25 mcg IVPUSH ONETIME ONE Stop: 11/16/16 10:04 Last Admin: 11/16/16 10:28 Dose: 25 mcg Fentanyl (Sublimaze) 50 mcg IVPUSH ONETIME ONE Stop: 11/16/16 13:30 Last Admin: 11/16/16 13:45 Dose: 50 mcg Sodium Chloride (Normal Saline) 1,000 mls @ 999 mls/hr IV .BOLUS ONE Stop: 11/16/16 06:56 Last Admin: 11/16/16 06:08 Dose: 999 mls/hr Dextrose/Sodium Chloride (Dextrose 5%-1/2 Ns) 1,000 mls @ 50 mls/hr IV ASDIRECTED [facility] Insulin Aspart (Novolog) 10 unit SUBCUT NOW STA Stop: 11/16/16 10:30 Last Admin: 11/16/16 10:40 Dose: 10 units Insulin Aspart (Novolog) 5 unit SUBCUT Q6H [facility] Last Admin: 11/16/16 16:56 Dose: 5 units Insulin Aspart (Novolog) 0 unit SUBCUT Q6H [facility] PRN Reason: Protocol Insulin Aspart (Novolog) 6 unit SUBCUT Q6H [facility] Insulin Aspart (Novolog) 12 unit SUBCUT Q6H [facility] Last Admin: 11/17/16 04:02 Dose: 12 units Ondansetron HCl (Zofran) 4 mg IVPUSH ONETIME ONE Stop: 11/16/16 05:57 Last Admin: 11/16/16 06:08 Dose: 4 mg Insulin Glargine,Hum .Rec.Anlog [Michaelvonfranky Freitasayana] 18 Unit 1 each SUBCUT BEDTIME [facility] Pregabalin (Lyrica) 25 mg PO BID [facility] Last Admin: 11/17/16 09:35 Dose: Not Given Tramadol HCl (Ultram) 50 mg PO ONETIME ONE Stop: 11/17/16 14:29 Last Admin: 11/17/16 15:35 Dose: 50 mg - Exam General: Reports: alert, oriented, cooperative Neck: Reports: supple Lungs: Reports: Clear to auscultation, Normal respiratory effort Cardiovascular: Reports: Regular Rate, Regular Rhythm, No Murmurs Abdomen: Reports: bowel sounds present, soft, no tenderness, no distension Extremities: Reports: no edema, normal pulses Neurological: Reports: no new focal deficit Psy/Mental Status: Reports: alert, normal affect, normal mood *Q Meaningful Use (DIS) - VTE *Q VTE Criteria *Q: - Stroke *Q Stroke Criteria *Q: - AMI *Q AMI Criteria *Q: <Isai Peña O - Last Filed: 11/18/16 12:48> Discharge Summary - Patient Summary/Data Consults: Consultations 11/17/16 11:53 Consult to Agricultural Real Estate Agent [Consult to Diabetic Nurse Specialist] [CONS] Routine - Discharge Summary/Plan Comment Discharge Summary/Plan Comment: I was present with the resident during the history and exam. I discussed the case with the resident and agree with the findings and plan as documented in the president's note - Patient Data Vitals - Most Recent: Last Vital Signs Temp 36.9 C 11/18/16 07:38 Pulse 68 11/18/16 07:38 Resp 20 11/18/16 07:38 BP 126/77 11/18/16 07:38 Pulse Ox 95 11/18/16 07:38 I&O - Last 24 hours: Intake & Output 11/17/16 11/18/16 11/18/16 22:59 06:59 14:59 Intake Total 1130 1339 Output Total 800 1050 Balance 330 289 Lab Results - Last 24 hrs: Laboratory Results - last 24 hr 11/17/16 11/17/16 11/18/16 Range/Units 16:59 20:59 04:44 WBC 4.23 (4.0-11.0) K/uL RBC 4.39 (4.30-5.90) M/uL Hgb 12.4 (12.0-16.0) g/dL Hct 36.0 (36.0-46.0) % MCV 82.0 (80.0-98.0) fL MCH 28.2 (27.0-32.0) pg MCHC 34.4 (31.0-37.0) g/dL RDW Std Deviation 39.7 (28.0-62.0) fl RDW Coeff of Lionel 13 (11.0-15.0) % Plt Count 138 L (150-400) K/uL MPV 10.90 (7.40-12.00) fL Neut % (Auto) 53.9 (48.0-80.0) % Lymph % (Auto) 37.6 (16.0-40.0) % Foster % (Auto) 4.7 (0.0-15.0) % Eos % (Auto) 3.1 (0.0-7.0) % Baso % (Auto) 0.7 (0.0-1.5) % Neut # (Auto) 2.3 (1.4-5.7) K/uL Lymph # (Auto) 1.6 (0.6-2.4) K/uL Foster # (Auto) 0.2 (0.0-0.8) K/uL Eos # (Auto) 0.1 (0.0-0.7) K/uL Baso # (Auto) 0.0 (0.0-0.1) K/uL Nucleated RBC % 0.0 /100WBC Nucleated RBCs # 0 K/uL Sodium (136-146) mmol/L Potassium (3.5-5.1) mmol/L Chloride (98-110) mmol/L Carbon Dioxide (21-31) mmol/L BUN (6.0-23.0) mg/dL Creatinine (0.6-1.5) mg/dL Est Cr Clr Drug Dosing mL/min Estimated GFR (MDRD) ml/min Glucose (60-110) mg/dL POC Glucose 259 H 293 H (60-110) mg/dL Calcium (8.8-10.8) mg/dL Magnesium (1.5-2.3) mEq/L Free T4 (0.7-1.48) ng/dL TSH 3rd Generation (0.47-5.0) uIU/mL 11/18/16 11/18/16 11/18/16 Range/Units 04:44 04:44 06:31 WBC (4.0-11.0) K/uL RBC (4.30-5.90) M/uL Hgb (12.0-16.0) g/dL Hct (36.0-46.0) % MCV (80.0-98.0) fL MCH (27.0-32.0) pg MCHC (31.0-37.0) g/dL RDW Std Deviation (28.0-62.0) fl RDW Coeff of Lionel (11.0-15.0) % Plt Count (150-400) K/uL MPV (7.40-12.00) fL Neut % (Auto) (48.0-80.0) % Lymph % (Auto) (16.0-40.0) % Foster % (Auto) (0.0-15.0) % Eos % (Auto) (0.0-7.0) % Baso % (Auto) (0.0-1.5) % Neut # (Auto) (1.4-5.7) K/uL Lymph # (Auto) (0.6-2.4) K/uL Foster # (Auto) (0.0-0.8) K/uL Eos # (Auto) (0.0-0.7) K/uL Baso # (Auto) (0.0-0.1) K/uL Nucleated RBC % /100WBC Nucleated RBCs # K/uL Sodium 141 (136-146) mmol/L Potassium 4.0 (3.5-5.1) mmol/L Chloride 104 (98-110) mmol/L Carbon Dioxide 30 (21-31) mmol/L BUN 9 (6.0-23.0) mg/dL Creatinine 1.1 (0.6-1.5) mg/dL Est Cr Clr Drug Dosing 53.83 mL/min Estimated GFR (MDRD) 52.2 ml/min Glucose 211 H (60-110) mg/dL POC Glucose 197 H (60-110) mg/dL Calcium 8.7 L (8.8-10.8) mg/dL Magnesium 1.8 (1.5-2.3) mEq/L Free T4 1.03 (0.7-1.48) ng/dL TSH 3rd Generation 2.79 (0.47-5.0) uIU/mL Med Orders - Current: Current Medications Acetaminophen (Tylenol) 650 mg PO Q6H PRN PRN Reason: Headache/Pain Last Admin: 11/17/16 04:06 Dose: 650 mg Sodium Chloride (Normal Saline) 1,000 mls @ 50 mls/hr IV ASDIRECTED [facility] Last Admin: 11/17/16 18:29 Dose: 50 mls/hr Insulin Aspart (Novolog) 0 unit SUBCUT TIDAC [facility] PRN Reason: Protocol Last Admin: 11/18/16 06:48 Dose: 2 units Ondansetron HCl (Zofran) 4 mg IVPUSH Q4H PRN PRN Reason: Nausea Last Admin: 11/18/16 05:02 Dose: 4 mg Oxycodone HCl (Oxycodone) 5 mg PO Q4H PRN PRN Reason: Pain Last Admin: 11/18/16 01:56 Dose: 5 mg Toujeo Own Med 0 each SUBCUT BEDTIME [facility] Last Admin: 11/17/16 21:00 Dose: 18 each Promethazine HCl (Phenergan) 25 mg IM Q8H PRN PRN Reason: Nausea/Vomiting Discontinued Medications Fentanyl (Sublimaze) 25 mcg IVPUSH ONETIME ONE Stop: 11/16/16 10:04 Last Admin: 11/16/16 10:28 Dose: 25 mcg Fentanyl (Sublimaze) 50 mcg IVPUSH ONETIME ONE Stop: 11/16/16 13:30 Last Admin: 11/16/16 13:45 Dose: 50 mcg Sodium Chloride (Normal Saline) 1,000 mls @ 999 mls/hr IV .BOLUS ONE Stop: 11/16/16 06:56 Last Admin: 11/16/16 06:08 Dose: 999 mls/hr Dextrose/Sodium Chloride (Dextrose 5%-1/2 Ns) 1,000 mls @ 50 mls/hr IV ASDIRECTED [facility] Insulin Aspart (Novolog) 10 unit SUBCUT NOW STA Stop: 11/16/16 10:30 Last Admin: 11/16/16 10:40 Dose: 10 units Insulin Aspart (Novolog) 5 unit SUBCUT Q6H [facility] Last Admin: 11/16/16 16:56 Dose: 5 units Insulin Aspart (Novolog) 0 unit SUBCUT Q6H [facility] PRN Reason: Protocol Insulin Aspart (Novolog) 6 unit SUBCUT Q6H [facility] Insulin Aspart (Novolog) 12 unit SUBCUT Q6H [facility] Last Admin: 11/17/16 04:02 Dose: 12 units Ondansetron HCl (Zofran) 4 mg IVPUSH ONETIME ONE Stop: 11/16/16 05:57 Last Admin: 11/16/16 06:08 Dose: 4 mg Insulin Glargine,Hum .Rec.Anlog [Aguilar Mattson] 18 Unit 1 each SUBCUT BEDTIME [facility] Pregabalin (Lyrica) 25 mg PO BID [facility] Last Admin: 11/17/16 09:35 Dose: Not Given Tramadol HCl (Ultram) 50 mg PO ONETIME ONE Stop: 11/17/16 14:29 Last Admin: 11/17/16 15:35 Dose: 50 mg *Q Meaningful Use (DIS) - VTE *Q VTE Criteria *Q: - Stroke *Q Stroke Criteria *Q: - AMI *Q AMI Criteria *Q: - Orders Orders Last 24hrs: Active Orders 24 hr Category Date Time Status Ready for Discharge [RC] PER UNIT ROUTINE Care 11/18/16 08:35 Active Consult to Agricultural Real Estate Agent [Consult to Diabetic Nurse Cons 11/17/16 11:53 Active Specialist] [CONS] Routine Regular Diet [DIET] Diet 11/18/16 Breakfast Active BASIC METABOLIC PANEL,BMP [CHEM] DAILY Lab 11/19/16 05:00 Ordered BASIC METABOLIC PANEL,BMP [CHEM] DAILY Lab 11/20/16 05:00 Ordered CBC WITH AUTO DIFF [HEME] DAILY Lab 11/19/16 05:00 Ordered CBC WITH AUTO DIFF [HEME] DAILY Lab 11/20/16 05:00 Ordered MAGNESIUM [CHEM] DAILY Lab 11/19/16 05:00 Ordered MAGNESIUM [CHEM] DAILY Lab 11/20/16 05:00 Ordered Patient's Own Medication [Ptom] Med 11/17/16 21:00 Active 0 each SUBCUT BEDTIME Medication Orders Acetaminophen (Tylenol) 650 mg PO Q6H PRN PRN Reason: Headache/Pain Last Admin: 11/17/16 04:06 Dose: 650 mg Sodium Chloride (Normal Saline) 1,000 mls @ 50 mls/hr IV ASDIRECTED [facility] Last Admin: 11/17/16 18:29 Dose: 50 mls/hr Infusion: 11/17/16 18:29 Dose: 50 mls/hr Admin: 11/17/16 17:25 Dose: 50 mls/hr Infusion: 11/17/16 14:26 Dose: 50 mls/hr Admin: 11/16/16 18:26 Dose: 50 mls/hr Insulin Aspart (Novolog) 0 unit SUBCUT TIDAC [facility] PRN Reason: Protocol Last Admin: 11/18/16 06:48 Dose: 2 units Admin: 11/17/16 17:25 Dose: 6 units Admin: 11/17/16 13:11 Dose: 2 units Ondansetron HCl (Zofran) 4 mg IVPUSH Q4H PRN PRN Reason: Nausea Last Admin: 11/18/16 05:02 Dose: 4 mg Admin: 11/17/16 21:38 Dose: 4 mg Admin: 11/17/16 08:46 Dose: 4 mg Admin: 11/17/16 01:57 Dose: 4 mg Admin: 11/16/16 13:21 Dose: 4 mg Admin: 11/16/16 09:19 Dose: 4 mg Oxycodone HCl (Oxycodone) 5 mg PO Q4H PRN PRN Reason: Pain Last Admin: 11/18/16 01:56 Dose: 5 mg Admin: 11/17/16 01:34 Dose: 5 mg Admin: 11/16/16 21:13 Dose: 5 mg Admin: 11/16/16 16:54 Dose: 5 mg Toujeo Own Med 0 each SUBCUT BEDTIME [facility] Last Admin: 11/17/16 21:00 Dose: 18 each Promethazine HCl (Phenergan) 25 mg IM Q8H PRN PRN Reason: Nausea/Vomiting
== END 2016-11-18 10:50 | disposition home or self-care (01) | DRG 251 ==
LOC: MW.ED 05:38 → UNDOADMOB 07:04 → MW.MS 07:04 → EDLOC 07:04 → MW.ED 07:30 → INTOOBSV 08:42 → UNDOADMOB 08:42 → OBSVTOIN 08:42 → MW.MS 08:42 → OBSVTOIN 10:04
PROVIDERS: ADMIT Internal Medicine; ATTEND Internal Medicine
DX: R10.84 Generalized abdominal pain (principal); R51 Headache; E11.65 Type 2 diabetes mellitus with hyperglycemia; R11.2 Nausea with vomiting, unspecified; E86.0 Dehydration; R16.1 Splenomegaly, not elsewhere classified; F41.9 Anxiety disorder, unspecified; I10 Essential (primary) hypertension; K76.0 Fatty (change of) liver, not elsewhere classified; K43.9 Ventral hernia without obstruction or gangrene; Z79.4 Long term (current) use of insulin; Z79.899 Other long term (current) drug therapy
CPT/HCPCS: 36415; 36600; 71010; 71010-26; 74176; 74176-26; 80048; 80053; 81001; 82553; 82803; 82962; 83690; 83735; 84100; 84439; 84443; 84484; 85025; 88104; 93005; 96361; 96374; 99283; 99285-25; A9270-GY; J1815-GY; J2405; J3010; J7040

== ENCOUNTER → 2016-11-24 | Outpatient (CLI) | payer BC | LOC: MW.CHIM 14:35 | PROVIDERS: ATTEND Internal Medicine | DX: I10 Essential (primary) hypertension (principal); R51 Headache; E11.9 Type 2 diabetes mellitus without complications; G89.29 Other chronic pain | CPT/HCPCS: 36415; 80053; 80061; 82044; 83036 ==

== ENCOUNTER → 2016-12-30 | Outpatient (CLI) | payer BC | LOC: MW.CHIM 10:42 | PROVIDERS: ATTEND Internal Medicine | DX: E11.9 Type 2 diabetes mellitus without complications (principal) | CPT/HCPCS: 36415; 80053; 83036 ==